=== PATIENT | female | born 1955 | race African-American/Black ===

== ENCOUNTER 2023-09-28 16:04 | Observation (INO) | payer OTHER ==
[2023-09-28 18:21] LABS: BASO % 1.2 % (0-2.0); EOS % 0.2 % (0-4.5); HEMATOCRIT 37.3 % (32.4-45.2); LYMPH % 14.6 % (8-40); MEAN CELL VOLUME 84.3 fl (80-96); MEAN PLT VOLUME 8.9 fl (7.5-11.1); MONO % 2.9 % (3.8-10.2); NEUT % 81.1 % (42.8-82.8); PLATELET COUNT 250 10^3/uL (134-434); RBC 4.43 M/mm3 (3.60-5.2); RDW 14.8 % (11.6-15.6); WHITE BLOOD COUNT 7.1 K/mm3 (4.0-10.0)
[2023-09-28 18:29] LABS: INR 1.01 (0.83-1.09); PROTHROMBIN TIME (PATIENT) 11.7 SEC (9.7-13.0)
[2023-09-28 18:52] LABS: POTASSIUM 4.4 mmol/L (3.5-5.1)
[2023-09-28 18:54] LABS: ALBUMIN 3.4 g/dl (3.4-5.0); BLOOD UREA NITROGEN 17.6 mg/dL (7-18)
[2023-09-28 18:57] LABS: CREATININE 1.3 mg/dL (0.55-1.3)
[2023-09-28 18:59] LABS: BILIRUBIN,TOTAL 0.4 mg/dL (0.2-1); TOT PROT 6.4 g/dl (6.4-8.2)
[2023-09-28 19:46] LABS: PH,URINE 5.5 (5.0-8.0); URINE APPEARANCE CLEAR; URINE BILIRUBIN NEGATIVE (NEGATIVE); URINE COLOR YELLOW; URINE GLUCOSE (UA) NEGATIVE (NEGATIVE); URINE KETONE 1+ (NEGATIVE); URINE LEUK ESTERASE NEGATIVE (NEGATIVE); URINE NITRITE NEGATIVE (NEGATIVE); URINE PROTEIN NEGATIVE (NEGATIVE)
[2023-09-29 07:45] LABS: HEMATOCRIT 35.8 % (32.4-45.2); HEMOGLOBIN 11.3 GM/dL (10.7-15.3); MCH 26.8 pg (25.7-33.7); MCHC 31.6 g/dl (32.0-36.0); MEAN CELL VOLUME 84.7 fl (80-96); MEAN PLT VOLUME 8.9 fl (7.5-11.1); PLATELET COUNT 245 10^3/uL (134-434); RBC 4.22 M/mm3 (3.60-5.2); RDW 14.7 % (11.6-15.6); WHITE BLOOD COUNT 5.2 K/mm3 (4.0-10.0)
[2023-09-29 08:03] LABS: POTASSIUM 4.3 mmol/L (3.5-5.1)
[2023-09-29 08:05] LABS: ALBUMIN 3.1 g/dl (3.4-5.0); BLOOD UREA NITROGEN 19.3 mg/dL (7-18); CALCIUM 8.8 mg/dL (8.5-10.1); MAGNESIUM 1.8 mg/dL (1.8-2.4)
[2023-09-29 08:08] LABS: CREATININE 1.2 mg/dL (0.55-1.3); PHOSPHOROUS 3.9 mg/dL (2.5-4.9)
[2023-09-29 08:10] LABS: BILIRUBIN,TOTAL 0.5 mg/dL (0.2-1); TOT PROT 5.8 g/dl (6.4-8.2)
[2023-09-29 09:48] VITALS: BP 131/64; PULSE 74; RESP 19; TEMP 97.7; BMI 29.1
== END 2023-09-29 13:47 | disposition home or self-care (01) ==
LOC: JER 16:04 → INTOOBSV 19:32 → JERBED 19:32 → J7W 09-29 09:26
PROVIDERS: ADMIT Internal Medicine
DX: T65.91XA Toxic effect of unspecified substance, accidental (unintentional), initial encounter (principal); E04.1 Nontoxic single thyroid nodule; E11.9 Type 2 diabetes mellitus without complications; F03.90 Unspecified dementia, unspecified severity, without behavioral disturbance, psychotic disturbance, mood disturbance, and anxiety; R09.3 Abnormal sputum; T50.991A Poisoning by other drugs, medicaments and biological substances, accidental (unintentional), initial encounter; Y93.89 Activity, other specified; Y92.009 Unspecified place in unspecified non-institutional (private) residence as the place of occurrence of the external cause
CPT/HCPCS: 36415; 70491-TC; 71046-TC-FY; 71260-TC; 80053; 81003; 83036; 83735; 84100; 85025; 85027; 85610; 85730; 86850; 86900; 86901; 87086; 93005; 93010; 99285-25; G0378

== ENCOUNTER 2024-03-19 15:42 | Observation (INO) | payer OTHER ==
[2024-03-19 17:25] LABS: BASO % 0.8 % (0-2.0); EOS % 1.3 % (0-4.5); HEMATOCRIT 35.9 % (32.4-45.2); HEMOGLOBIN 11.7 GM/dL (10.7-15.3); LYMPH % 22.8 % (8-40); MCH 27.4 pg (25.7-33.7); MCHC 32.7 g/dl (32.0-36.0); MEAN PLT VOLUME 8.2 fl (7.5-11.1); MONO % 5.9 % (3.8-10.2); NEUT % 69.2 % (42.8-82.8); PLATELET COUNT 270 10^3/uL (134-434); RBC 4.27 M/mm3 (3.60-5.2); RDW 16.1 % (11.6-15.6); WHITE BLOOD COUNT 5.9 K/mm3 (4.0-10.0)
[2024-03-19 17:32] LABS: INR 0.99 (0.83-1.09); PROTHROMBIN TIME (PATIENT) 11.5 SEC (9.7-13.0)
[2024-03-19 17:35] LABS: ACTIVATED PTT 25.4 SECONDS (25.2-36.5)
[2024-03-19 17:40] LABS: POTASSIUM 4.5 mmol/L (3.5-5.1)
[2024-03-19 17:42] LABS: CALCIUM 9.8 mg/dL (8.5-10.1)
[2024-03-19 17:43] LABS: ALBUMIN 3.4 g/dl (3.4-5.0); BLOOD UREA NITROGEN 25.2 mg/dL (7-18)
[2024-03-19 17:46] LABS: CREATININE 1.4 mg/dL (0.55-1.3)
[2024-03-19 17:48] LABS: BILIRUBIN,TOTAL 0.2 mg/dL (0.2-1); TOT PROT 6.6 g/dl (6.4-8.2)
[2024-03-19 19:01] LABS: EPI CELLS 20 /uL (0-25.1); HYALINE CASTS 0 /uL (0-3.1); URINE APPEARANCE CLEAR; URINE BACTERIA 205 /uL (0-1359); URINE BILIRUBIN NEGATIVE (NEGATIVE); URINE COLOR YELLOW; URINE GLUCOSE (UA) 3+ (NEGATIVE); URINE KETONE NEGATIVE (NEGATIVE); URINE LEUK ESTERASE TRACE (NEGATIVE); URINE NITRITE NEGATIVE (NEGATIVE); URINE PROTEIN NEGATIVE (NEGATIVE); URINE RBC 12 /uL (0-23.9); URINE UROBILINOGEN 0.2 mg/dL (0.2-1.0); URINE WBC 95 /uL (0-25.8)
[2024-03-19 19:34] LABS: YEAST FEW (NEGATIVE)
[2024-03-19] MEDS ORDERED: FAMOTIDINE 20 MG TABLET PO PRN (23:37)
[2024-03-19] MEDS: CEFUROXIME AXETIL 500 MG TABLET PO SCH (23:44)
[2024-03-20] MEDS: SODIUM CHLORIDE 1,000 ML IV SCH (00:58)
[2024-03-20 02:00] VITALS: BMI 29.0
[2024-03-20] MEDS: INSULIN ASPART SLIDING SCALE (NOVOLOG) 1 VIAL SQ SCH (06:16)
[2024-03-20 08:19] LABS: EOS % 1.6 % (0-4.5); HEMATOCRIT 32.9 % (32.4-45.2); HEMOGLOBIN 10.5 GM/dL (10.7-15.3); LYMPH % 34.9 % (8-40); MCH 27.1 pg (25.7-33.7); MCHC 31.8 g/dl (32.0-36.0); MEAN CELL VOLUME 85.2 fl (80-96); MEAN PLT VOLUME 9.2 fl (7.5-11.1); MONO % 5.6 % (3.8-10.2); NEUT % 56.9 % (42.8-82.8); PLATELET COUNT 175 10^3/uL (134-434); RBC 3.86 M/mm3 (3.60-5.2); RDW 16.1 % (11.6-15.6); WHITE BLOOD COUNT 5.4 K/mm3 (4.0-10.0)
[2024-03-20 08:23] LABS: POTASSIUM 4.2 mmol/L (3.5-5.1)
[2024-03-20 08:27] LABS: BLOOD UREA NITROGEN 24.2 mg/dL (7-18); CALCIUM 8.4 mg/dL (8.5-10.1); MAGNESIUM 1.9 mg/dL (1.8-2.4)
[2024-03-20 08:29] LABS: CREATININE 1.1 mg/dL (0.55-1.3); PHOSPHOROUS 3.4 mg/dL (2.5-4.9)
[2024-03-20 08:31] LABS: BILIRUBIN,TOTAL 0.4 mg/dL (0.2-1)
[2024-03-20 08:38] LABS: ALBUMIN 2.5 g/dl (3.4-5.0)
[2024-03-20] MEDS: ASPIRIN 81 MG CHEWABLE TABLETS PO SCH (09:22)
[2024-03-20] MEDS: DONEPEZIL HCL 10 MG TABLET (FP) PO SCH (09:22)
[2024-03-20 15:10] VITALS: BP 133/69; PULSE 72; RESP 18; TEMP 98.2
[2024-03-20] MEDS ORDERED: ROSUVASTATIN CA 40 MG TABLET PO SCH (22:00)
== END 2024-03-20 16:35 | disposition home health service (06) ==
LOC: JER 15:42 → UNDOADMOB 18:21 → INTOOBSV 18:21 → JERBED 18:21 → J8W 23:03 → JERBED 23:03 → J8W 03-20 12:07
PROVIDERS: ADMIT Internal Medicine; ATTEND Nurse Practitioner Family
PROC: 3E0337Z Introduction of Electrolytic and Water Balance Substance into Peripheral Vein, Percutaneous Approach (ICD-10-PCS; principal; 2024-03-20)
DX: N39.0 Urinary tract infection, site not specified (principal); E11.9 Type 2 diabetes mellitus without complications; G30.0 Alzheimer's disease with early onset; F02.80 Dementia in other diseases classified elsewhere, unspecified severity, without behavioral disturbance, psychotic disturbance, mood disturbance, and anxiety; I10 Essential (primary) hypertension; K21.9 Gastro-esophageal reflux disease without esophagitis
CPT/HCPCS: 36415; 71045-TC-FY; 80053; 81003; 82550; 82553; 82962; 83036; 83735; 84100; 84484; 85025; 85610; 85730; 86850; 86900; 86901; 87086; 93005; 93010; 96360; 97116-GP; 97161-GP; 99285-25; G0378

== ENCOUNTER 2024-09-11 16:17 | Emergency (ER) | payer OTHER ==
[2024-09-11 16:35] VITALS: BP 151/95; PULSE 80; RESP 18; TEMP 99; BMI 31.9
[2024-09-11] MEDS ORDERED: ACETAMINOPHEN 325 MG TABLET (FP) ONE (17:11)
[2024-09-11] MEDS: ACETAMINOPHEN 325 MG TABLET (FP) PO ONE (17:17)
== END 2024-09-11 18:44 | disposition home or self-care (01) ==
LOC: JERFT 16:17
DX: S06.0X0A Concussion without loss of consciousness, initial encounter (principal); W01.198A Fall on same level from slipping, tripping and stumbling with subsequent striking against other object, initial encounter
CPT/HCPCS: 70450-TC; 99284-25